=== PATIENT | female | born 1975 | race Caucasian/White ===

== ENCOUNTER → 2016-11-16 | Outpatient (CLI) | payer OTHER ==
[~2016-11-16] MED LIST: ALBUAER2 INH; AMPH20TA2 PO; CHOL1TAB4 PO; CYAN10005 PO; HYDR-4079 PO; KLN1X PO
[2016-11-16 14:38] LABS: THYROID STIMULATING HORMONE 0.016 uIu/ml (0.300-4.500)
== END | disposition home or self-care (01) ==
LOC: C.LABMFLN 09:28
PROVIDERS: ATTEND Internal Medicine Endocrinology, Diabetes & Metabolism
DX: E06.3 Autoimmune thyroiditis (principal)

== ENCOUNTER → 2016-12-04 | Outpatient (CLI) | payer OTHER ==
--- NOTE | 2016-12-04 13:30 | MAMMOGRAPHY REPORT ---
UNILATERAL LEFT DIGITAL DIAGNOSTIC MAMMOGRAM TOMOSYNTHESIS WITH CAD AND TARGETED LEFT ULTRASOUND: CLINICAL HISTORY: 41-year-old woman presents with focal pain and palpable mass in the upper outer qu adrant of the left breast. Patient has a history of cysts and prior cyst aspiration in the left jessenia ast. TECHNIQUE: Left breast tomosynthesis in addition to standard 2D mammography was performed. Current s nicole was also evaluated with a Computer Aided Detection (CAD) system. COMPARISON: Comparison is made to exams dated: 06/22/2016 mammogram, 12/30/2015 ultrasound, 12/30/2015 mammogram, 05/27/2015 mammogram, and 03/09/2014 mammogram - [facility]. BREAST COMPOSITION: There are scattered areas of fibroglandular density in the left breast. FINDINGS: A triangular skin palpable marker overlies the upper outer middle one third of the left br east, denoting the area of pain and lump pointed out by the patient. There are multiple round and o katherine circumscribed subcentimeter masses within the left breast, some of which have fluctuated in size compared to prior exams and others of which are stable. There are benign rim calcifications. No s uspicious spiculated or irregular mass, architectural distortion or cluster of suspicious microcalci fications. No new suspicious abnormality in the area of palpable concern as denoted by the skin pal pable marker. Real-time high-resolution ultrasound was performed in the area of concern pointed out by the patient (in the 1:00 and 2:00 left breast approximately 5-6 cm from the nipple. There is no evidence of a suspicious solid mass in this location or other suspicious abnormality. Incidental note is made of a small 3.2 x 1.6 x 2.7 mm cyst in the 1:00 left breast, 6 cm from the nipple. There is an oval par allel isoechoic solid-appearing mass in the 3:00 left breast, 5 cm from the nipple, measuring 4.5 x 3.1 x 6.4 mm. A cyst with internal nonvascular septations is seen in the 4:00 left breast, 1 cm fro m the nipple, measuring 3.7 x 4.5 x 6.1 mm. This was previously described in the 5:00 axis approxim ately 2 cm from the nipple and does not appear significantly changed. An adjacent nearly anechoic c yst is also identified measuring 5.8 x 2.7 x 4.8 mm and this is also unchanged. There is an anechoi c simple cyst in the 6:00 left breast, 1 cm from the nipple, measuring 3.9 x 2.5 x 3.4 mm. A probab le, located cyst in the 11:00 left breast, 2 cm from the nipple, measuring 7.5 x 3.0 x 7.9 mm, that is oval and parallel in configuration. It is slightly hypoechoic and has internal echogenicity. Although these findings most likely represent benign fibrocystic changes, particularly given prior b enign cyst aspirations in the left breast. There is an indeterminate solid mass in the 3:00 axis th at warrant definitive characterization with an ultrasound-guided core needle biopsy. Pending benign pathology results, could follow the probable complicated cyst in the 11:00 left breast in 6 months. IMPRESSION: ACR BI-RADS CATEGORY 4B: INTERMEDIATE SUSPICION FOR MALIGNANCY, TARGETED ULTRASOUND ACR BI-RADS CATEGORY 4B: INTERMEDIATE SUSPICION FOR MALIGNANCY 1. No new suspicious mammographic or sonographic abnormality is seen in the upper outer quadrant of the left breast to explain the patient's pain and palpable lump. Therefore, clinical follow-up is recommended, as biopsy of a clinically suspicious mass should not be precluded by negative imaging. 2. There are multiple benign-appearing subcentimeter masses throughout the left breast mammographic ally, that most likely represents benign fibrocystic changes. However, on ultrasound in the 3:00 le ft breast, 5 cm from the nipple, there is an indeterminate solid mass measuring 6.4 mm. Although th is could represent a benign fibroadenoma, definitive characterization with an ultrasound-guided core needle biopsy is recommended. 3. Pending benign pathology results would follow-up the probable complicated cyst in the 11:00 left breast in 6 months. These results and recommendations were discussed with the patient at the time of the exam. Approximately 10% of breast cancers are not detected with mammography. A negative mammographic repor t should not delay biopsy if a clinically suggestive mass is present. Nicole Bansal M.D. ay/:12/04/2016 12:10:12 Electronic Game Developer: Emili TEJADA(Morgan)(Michael), [facility] letter sent: Abnormal 4/5 BI-RADS Code: ACR BI-RADS Category 4B: Intermediate Suspicion For Malignancy Ultrasound BI-RADS: AC R BI-RADS Category 4B: Intermediate Suspicion For Malignancy
== END | disposition home or self-care (01) ==
LOC: C.MAMM 08:51
PROVIDERS: ATTEND Family Medicine
DX: N63 Unspecified lump in breast (principal)

== ENCOUNTER → 2016-12-10 | Outpatient (CLI) | payer OTHER ==
--- NOTE | 2016-12-10 11:49 | Discharge Instructions ---
Discharge Instructions Procedure Procedure Date: Dec 10, 2016. Reason for visit: Left Mass. Discharge Discharge Date: Dec 10, 2016. Discharge Diagnosis: post left breast 3:00 ultrasound guided core biopsy Instructions Activity Recommendations: Additional Limitations (see below) Return to School/Work: no limitations Recommended Home Diet: No Limitations Provider Instructions: ACTIVITY RECOMMENDATIONS: * No lifting, pushing, pulling or exercising the affected side for three days. RETURN TO SCHOOL/WORK: * You may return to work/school after the procedure, but do not perform any strenuous activities for 24 to 48 hours. MEDICATIONS: * Tylenol (two 325 mg) every four to six hours if needed for mild pain (if not allergic to Tylenol). DIET: * Resume previous diet. SPECIAL CARE INSTRUCTIONS: * Keep biopsy site dry for 24 hours. May shower after 24 hours, but do not soak (bathe) incision. * May remove Tegaderm (plastic patch) tomorrow AFTER showering. * Leave the steri-strips on for one week. Allow the steri-strips to fall off by themselves. If not off after one week, you may remove them. You may place a Bandaid crosswise over the strips, if desired. * Apply ice 10 minutes on and 10 minutes off as needed. * Wear a bra at bedtime to sleep more comfortably for 2-3 days. * Your referring physician should have the results after approximately 5 to 7 business days. * Call for unusual bleeding, fever, drainage, etc or if you have any questions call [phone] during normal business hours or after hours call Dr Bansal, . FOLLOW UP VISIT: Follow-up with Referring Physician as scheduled. Allergies Coded Allergies: Cephalexin (Unverified Allergy, Severe, HIVES, 05/11/14) Metronidazole (Unverified Allergy, Severe, HIVES, 05/11/14) Kellee Bowen Recommendations: Call your doctor if: * Temperature above 101 degrees * Pain not relieved by pain medicine ordered * There is increased drainage or redness from any incision * You have any unanswered questions or concerns. Your Doctors Instructions noted above were prepared by provider Nicole Bansal. Patient Signature Section: Patient Instructions Signature Page Nette Tubbs Patient (or Guardian) Signature/Date: I have read and understand the instructions given to me by my caregivers. Caregiver/RN/Doctor Signature/Date: The above-named patient and/or guardian has received patient instructions on this date. + Original Patient Signature Page (only) stays with chart. Please make copy for patient.
--- NOTE | 2016-12-10 13:31 | MAMMOGRAPHY REPORT ---
THIS REPORT HAS BEEN AMENDED. ULTRASOUND GUIDED BIOPSY LEFT BREAST: 12/10/2016 CLINICAL HISTORY: Indeterminate solid mass in the 3:00 left breast. Patient presents for ultrasound -guided core needle biopsy. COMPARISON: Comparison is made to exams dated: 12/04/2016 ultrasound, 12/04/2016 mammogram, 06/22/2016 mammogram, 12/30/2015 mammogram, 06/14/2015 ultrasound, and 05/27/2015 mammogram - [facility]. PATIENT CONSENT: The procedure, risks and benefits were discussed with the patient and informed writ ten consent was obtained. Specific risks to this procedure include: bleeding, puncture of adjacent s tructure, nontarget biopsy, sampling error, metal allergy and medication reaction. A time out was performed in the left breast was agreed as the site for ultrasound-guided biopsy. Th e skin was prepped and draped in the usual sterile fashion. The solid mass in the 3:00 left breast w as chosen as the target for biopsy. Subcutaneous and intraparenchymal 1% buffered lidocaine without epinephrine was administered as local anesthesia. A skin incision was made. Through the incision, 3 samples were taken with a 14 gauge Achieve biopsy device. A metallic marker was placed at the biops y site. Hemostasis was achieved after manual compression. The patient tolerated the procedure well a nd there was no immediate complication. The samples were sent to the pathology department in an lindsey ropriately labeled container. Postprocedure left CC and ML views were obtained. There is a new ribbon-shaped metallic biopsy jenniffer er and no significant hematoma in the 3:00 middle one third of the breast, at the site of the biopsi ed isoechoic solid mass seen on ultrasound. Biopsy marker clip correlates with a dominant oval demo graphic mass that has been present dating back to at least 03/09/2014. Pending benign pathology res ults, a short interval follow-up left exam including repeat targeted ultrasound in the 11:00 axis is recommended to ensure stability in 6 months. IMPRESSION: ULTRASOUND GUIDED BIOPSY Status post ultrasound-guided core biopsy of an indeterminate solid mass in the 3:00 left breast, wi th biopsy marker placed at the site. Pending benign pathology results, a short interval follow-up left diagnostic mammogram and repeat ta rgeted ultrasound in the 11:00 axis is recommended to ensure stability of another possible complicat ed cyst seen on prior diagnostic workup. The patient will receive notification of the biopsy results from her referring physician. Nicole Bansal M.D. ay/:12/10/2016 12:03:12 Beet Flumer: Wendy Delgado, [facility] AMENDMENT: 12/27/2016 Nicole Bansal M.D. Pathology results from the ultrasound-guided core biopsy of a solid mass in the 3:00 left breast yie lded a fibroadenoma. Negative for DCIS and invasive carcinoma. A short interval follow-up diagnost ic left mammogram and repeat ultrasound is still recommended for the probable common located cyst in the 11:00 left breast and for reassessment of the mammographic appearance of the left breast given multiple masses. letter sent: Follow Up Recommended 3
--- NOTE | 2016-12-10 13:33 | MAMMOGRAPHY REPORT ---
UNILATERAL LEFT DIGITAL DIAGNOSTIC MAMMOGRAM: 12/10/2016 CLINICAL HISTORY: Status post ultrasound guided core biopsy in the 3:00 left breast. Please refer to the report from left breast ultrasound guided core biopsy performed at the same time for full detail. IMPRESSION: POST PROCEDURE IMAGING FOR MARKER PLACEMENT Please refer to the report from left breast ultrasound guided core biopsy performed at the same time for full detail. A follow-up left diagnostic mammogram and an ultrasound in 6 months is recommended to demonstrate st ability. Approximately 10% of breast cancers are not detected with mammography. A negative mammographic repor t should not delay biopsy if a clinically suggestive mass is present. Nicole Bansal M.D. ay/:12/10/2016 11:50:58 Truck Caterer: Wendy Delgado, [facility] BI-RADS Code: Post Procedure Imaging For Marker Placement
== END | disposition home or self-care (01) ==
LOC: C.MAMM 10:38
PROVIDERS: ATTEND Family Medicine
DX: D24.2 Benign neoplasm of left breast (principal)

== ENCOUNTER → 2017-02-19 | Outpatient (CLI) | payer OTHER ==
[2017-02-19 18:21] LABS: THYROID STIMULATING HORMONE 0.16 uIu/ml (0.300-4.500)
== END | disposition home or self-care (01) ==
LOC: C.LABMFLN 13:33
PROVIDERS: ATTEND Internal Medicine Endocrinology, Diabetes & Metabolism
DX: E06.3 Autoimmune thyroiditis (principal)

== ENCOUNTER → 2017-04-22 | Outpatient (CLI) | payer OTHER | END | disposition home or self-care (01) | LOC: C.LABMFLN 08:31 | PROVIDERS: ATTEND Internal Medicine Endocrinology, Diabetes & Metabolism | DX: E06.3 Autoimmune thyroiditis (principal); E03.8 Other specified hypothyroidism ==

== ENCOUNTER → 2017-06-05 | Outpatient (CLI) | payer OTHER ==
[2017-06-08 12:37] LABS: BORDETELLA PERTUSSIS SOURCE Nasal Swab
== END | disposition home or self-care (01) ==
LOC: C.LABMFLN 12:51
PROVIDERS: ATTEND Family Medicine
DX: R05 Cough (principal)

== ENCOUNTER → 2017-06-10 | Outpatient (CLI) | payer OTHER ==
--- NOTE | 2017-06-12 08:51 | MAMMOGRAPHY REPORT ---
BILATERAL DIGITAL DIAGNOSTIC MAMMOGRAM TOMOSYNTHESIS WITH CAD AND TARGETED BILATERAL ULTRASOUND: 2016 CLINICAL HISTORY: 42-year-old woman with a palpable, painful lump in the upper outer approximate 1:00 axis of the left breast, still present from November 2016. She has a history of biopsy-proven fibroa denoma in the 3:00 left breast, presents for a short follow-up of a benign-appearing mass in the 11:0 0 left breast seen on prior ultrasound, and also time of annual bilateral screening exam. TECHNIQUE: Bilateral breast tomosynthesis in addition to standard 2D mammography was performed. Curre nt study was also evaluated with a Computer Aided Detection (CAD) system. COMPARISON: Comparison is made to exams dated: 12/10/2016 mammogram, 12/10/2016 ultrasound biopsy, 2016 ultrasound, 12/04/2016 mammogram, 06/22/2016 mammogram, and 05/27/2015 mammogram - [facility]. BREAST COMPOSITION: There are scattered areas of fibroglandular density in both breasts. FINDINGS: A triangle shaped skin marker overlies the upper outer middle one third of the left breast, denoting the painful lump pointed out by the patient. There is no evidence of a new suspicious mass , developing asymmetry, microcalcification or architectural distortion in the area of palpable concer n. There is a stable ribbon shaped metallic biopsy marker in the 3:00 left breast. Stable nodularit y in the retroareolar and inferior left breast. Further evaluation with ultrasound was performed in the inferior and 11:00 axes of the left breast. The parenchymal pattern of the right breast is similar to prior mammograms. On the tomosynthesis yonny ges, there is nodularity of the breast tissue, with a possible partially circumscribed and lobulated 6 mm mass slightly lateral to the posterior nipple line on the CC view, for which further evaluation with ultrasound was performed. No focal area of architectural distortion, developing asymmetry or de leon spicious microcalcification. Targeted ultrasound was performed in both breasts. Particular attention was paid to the area of lump pointed out by the patient, in the 1:00 left breast, 9 cm from the nipple. On palpation, there is a nodular 1 cm mobile mass. On ultrasound in the area of concern, sonographically normal tissue is se en without a discrete solid or cystic mass. Additional ultrasound performed in the 11:00 left breast , 2 cm from the nipple, redemonstrates a parallel hypoechoic benign-appearing solid versus cystic mas s that measures 6.9 x 2.6 x 8.7 mm. This has not significantly changed comparing to the 12/04/2016 e xam at which time it measured 7.5 x 3.0 x 7.9 mm. 2 mildly complicated cyst with internal nonvascula r septations are again seen in the 4:00 to 5:00 periareolar left breast measuring 6 mm. In the right breast, a few scattered anechoic and mildly complicated cysts are seen particularly in t he 6:00 axis, 1 cm from the nipple, measuring 3.5 mm, in the 7:00 axis, 1 cm from the nipple measurin g 2.9 mm and in the 11:00 periareolar breast measuring 4.3 and 3.6 mm. There is no evidence of a blue picious solid mass in the visualized right breast. The largest round cyst in the 11:00 periareolar r ight breast is thought to correlate with the possible mammographic mass. IMPRESSION: ACR-BI-RADS CATEGORY 3: PROBABLY BENIGN, TARGETED ULTRASOUND ACR-BI-RADS CATEGORY 3: PRO BABLY BENIGN 1. There is a persistent painful lump in the 1:00 left breast, without suspicious mammographic or so nographic finding. Clinical follow-up is recommended particularly given the persistent nature of thi s palpable concern, with possible follow-up options of surgical consultation or fine-needle aspiratio n based on palpation in the pathology department. 2. Stable sonographic appearance of an 8 mm parallel hypoechoic lesion in the 11:00 left breast on u ltrasound. Another 12 month follow-up targeted ultrasound is recommended to ensure longer stability. 3. Scattered cysts in both breasts, compatible with fibrocystic changes. This accounts for most of the mammographic masses and nodularity. Overall, bilateral diagnostic mammograms including tomosynth esis images are recommended at the time of left breast ultrasound follow-up in 12 months. These results and recommendations were discussed with the patient at the time of the exam. Approximately 10% of breast cancers are not detected with mammography. A negative mammographic report should not delay biopsy if a clinically suggestive mass is present. Nicole Bansal M.D. ay/:06/10/2017 12:18:01 Water Tanker Driver: Olivia Gerardo RT(R)(M), [facility] letter sent: Follow Up Recommended 3 BI-RADS Code: ACR-BI-RADS Category 3: Probably Benign Ultrasound BI-RADS: ACR-BI-RADS Category 3: Pr obably Benign
== END | disposition home or self-care (01) ==
LOC: C.MAMM 10:36
PROVIDERS: ATTEND Family Medicine
DX: N64.4 Mastodynia (principal); N63 Unspecified lump in breast

== ENCOUNTER → 2017-07-25 | Outpatient (CLI) | payer OTHER ==
[2017-07-25 18:21] LABS: ALKALINE PHOSPHATASE 74 U/L (45-117); ALT/SGPT 18 U/L (12-78); AST/SGOT 7 U/L (15-37)
== END | disposition home or self-care (01) ==
LOC: C.LABMFLN 16:46
PROVIDERS: ATTEND Family Medicine
DX: E80.6 Other disorders of bilirubin metabolism (principal)

== ENCOUNTER → 2017-10-01 | Outpatient (CLI) | payer OTHER | END | disposition home or self-care (01) | LOC: C.LABMFLN 12:56 | PROVIDERS: ATTEND Family Medicine | DX: R82.90 Unspecified abnormal findings in urine (principal); R30.0 Dysuria ==

== ENCOUNTER → 2017-11-27 | Outpatient (CLI) | payer OTHER | END | disposition home or self-care (01) | LOC: C.LABMFLN 12:01 | PROVIDERS: ATTEND Urology | DX: R82.90 Unspecified abnormal findings in urine (principal) ==

== ENCOUNTER → 2018-02-12 | Outpatient (CLI) | payer OTHER | END | disposition home or self-care (01) | LOC: C.LABMFLN 17:46 | PROVIDERS: ATTEND Internal Medicine Endocrinology, Diabetes & Metabolism | DX: E06.3 Autoimmune thyroiditis (principal) ==

== ENCOUNTER → 2018-03-20 | Outpatient (CLI) | payer OTHER ==
--- NOTE | 2018-03-20 07:44 | DIAGNOSTIC IMAGING REPORT ---
(CHEST) THORAX WITHOUT CLINICAL HISTORY: Multiple pulmonary nodules COMPARISON STUDY: None CT DOSE: 282.33 mGy.cm TECHNIQUE: CT of the thorax was performed from the thoracic inlet to the lung bases. Images are reviewed in the axial, sagittal, and coronal planes. IV contrast was not administered for this examination. A dose lowering technique was utilized adhering to the principles of ALARA. FINDINGS: Thyroid: Imaged portions of the thyroid gland are normal in appearance. Thoracic aorta: The thoracic aorta is normal in course and caliber, noting standard 3 vessel arch anatomy. Heart: The heart is normal in size and configuration, without pericardial effusion. Lungs and pleural spaces: No pleural effusions are visualized. There is no focal pulmonary consolidation. There are in excess of 50 bilateral pulmonary nodules. The nodules appear groundglass, mixed, and solid. The largest is an 8.5 mm groundglass nodule within the left lung apex. There is no focal pulmonary consolidation to indicate a pneumonia. Follow-up per Fleischner criteria is recommended. Mediastinum: There is no mediastinal lymphadenopathy. Janett: There is no evidence of pathologic hilar adenopathy given the limitations of a noncontrast study Axilla: There is no evidence of pathologic axillary lymphadenopathy Upper abdomen: The gallbladder surgically absent Skeletal structures: There are no lytic or blastic osseous lesions. IMPRESSION: 1. There are in excess of 50 bilateral pulmonary nodules. These appear groundglass mixed and solid. The largest is an 8.5 mm groundglass nodule within the left lung apex. 3-6 month follow-up is recommended. Please refer to below summary of Fleischner criteria recommendations for follow-up of incidental CT nodules (Galen Canales, Guidelines for management of small pulmonary nodules detected on CT scans: A statement from the Fleischner Society, Radiology 237: [phone].) SOLID NODULES Solitary nodule size: <6 mm * low risk patients: no follow-up needed * high risk patients: optional CT at 12 months Solitary nodule size: 6-8 mm * low risk patients: follow-up at 6-12 months, then consider further follow-up at 18-24 months * high risk patients: initial follow-up CT at 6-12 months and then at 18-24 months if no change Solitary nodule size: >8 mm * either low or high risk patients - consider follow-up CT at 3 months, and/or CT-PET, and/or biopsy Multiple nodules size: <6 mm * low risk patients: no routine follow-up * high risk patients: optional CT at 12 months Multiple nodules size: 6-8 mm * low risk patients: follow-up at 3-6 months, then consider further follow-up at 18-24 months * high risk patients: follow-up at 3-6 months, then at 18-24 months if no change Multiple nodules size: >8 mm * low risk patients: follow-up at 3-6 months, then consider further follow-up at 18-24 months * high risk patients: follow-up at 3-6 months, then at 18-24 months if no change Note: newly detected indeterminate nodule in persons 35 years of age or older. * low risk patients: minimal or absent history of smoking and/or other known risk factors * high risk patients: history of smoking or of other known risk factors (e.g. first degree relative with lung cancer, or exposure to asbestos, radon, uranium) * if a nodule up to 8 mm is partly solid or is ground glass further follow-up is required after 24 months to exclude possible slow growing adenocarcinoma (MECHE) SUBSOLID NODULES Solitary pure ground-glass nodule * nodule size <6 mm - no CT follow-up required * nodule size >=6 mm - follow-up CT at 6-12 months, then every 2 years until 5 years Solitary part-solid nodule * nodule size <6 mm - no CT follow-up required * nodule size >=6 mm - follow-up CT at 3-6 months. If unchanged, and solid component remains <6 mm, then annual follow-up for 5 years Multiple subsolid nodules * nodule size <6 mm - follow-up CT at 3-6 months, consider further follow-up at 2 and 4 years if stable * nodule size >=6 mm - follow-up CT at 3-6 months, subsequent management based on the most suspicious nodule(s) Electronically signed by: Chang Tamez M.D. 03/20/2018 7:42 AM Dictated Date/Time: 03/20/2018 7:29 AM
== END | disposition home or self-care (01) ==
LOC: C.CTS 07:13
PROVIDERS: ATTEND Family Medicine
DX: R91.8 Other nonspecific abnormal finding of lung field (principal)

== ENCOUNTER → 2018-06-09 | Outpatient (CLI) | payer OTHER ==
--- NOTE | 2018-06-09 16:52 | DIAGNOSTIC IMAGING REPORT ---
(CHEST) THORAX WITHOUT CT DOSE: 426.62 mGycm HISTORY: Pulmonary nodules R91.8 Multiple pulmonary nodules TECHNIQUE: Multiaxial CT images of the chest were performed without contrast. A dose lowering technique was utilized adhering to the principles of ALARA. COMPARISON: 03/20/2018 FINDINGS: A considerable number of parenchymal nodules are again noted. These appear to be in general slightly increased in prominence. Several smaller nodules have diminished in prominence but the overall trend is one of a slight progression. There lungs otherwise appear clear. No significant mediastinal or hilar adenopathy. IMPRESSION: 1. Slight increase in prominence/number of the diffuse parenchymal nodularity throughout both hemithoraces. 2. Close CT follow-up at a 3-4 month time frame is suggested. Please refer to below summary of Fleischner criteria recommendations for follow-up of incidental CT nodules (Galen Canales, Guidelines for management of small pulmonary nodules detected on CT scans: A statement from the Fleischner Society, Radiology 237: [phone].) SOLID NODULES Solitary nodule size: <6 mm * low risk patients: no follow-up needed * high risk patients: optional CT at 12 months Solitary nodule size: 6-8 mm * low risk patients: follow-up at 6-12 months, then consider further follow-up at 18-24 months * high risk patients: initial follow-up CT at 6-12 months and then at 18-24 months if no change Solitary nodule size: >8 mm * either low or high risk patients - consider follow-up CT at 3 months, and/or CT-PET, and/or biopsy Multiple nodules size: <6 mm * low risk patients: no routine follow-up * high risk patients: optional CT at 12 months Multiple nodules size: 6-8 mm * low risk patients: follow-up at 3-6 months, then consider further follow-up at 18-24 months * high risk patients: follow-up at 3-6 months, then at 18-24 months if no change Multiple nodules size: >8 mm * low risk patients: follow-up at 3-6 months, then consider further follow-up at 18-24 months * high risk patients: follow-up at 3-6 months, then at 18-24 months if no change Note: newly detected indeterminate nodule in persons 35 years of age or older. * low risk patients: minimal or absent history of smoking and/or other known risk factors * high risk patients: history of smoking or of other known risk factors (e.g. first degree relative with lung cancer, or exposure to asbestos, radon, uranium) * if a nodule up to 8 mm is partly solid or is ground glass further follow-up is required after 24 months to exclude possible slow growing adenocarcinoma (MECHE) SUBSOLID NODULES Solitary pure ground-glass nodule * nodule size <6 mm - no CT follow-up required * nodule size >=6 mm - follow-up CT at 6-12 months, then every 2 years until 5 years Solitary part-solid nodule * nodule size <6 mm - no CT follow-up required * nodule size >=6 mm - follow-up CT at 3-6 months. If unchanged, and solid component remains <6 mm, then annual follow-up for 5 years Multiple subsolid nodules * nodule size <6 mm - follow-up CT at 3-6 months, consider further follow-up at 2 and 4 years if stable * nodule size >=6 mm - follow-up CT at 3-6 months, subsequent management based on the most suspicious nodule(s) The above report was generated using voice recognition software. It may contain grammatical, syntax or spelling errors. Electronically signed by: Osmar Holly M.D. 06/09/2018 4:51 PM Dictated Date/Time: 06/09/2018 4:44 PM
== END | disposition home or self-care (01) ==
LOC: C.CTS 16:23
PROVIDERS: ATTEND Internal Medicine Critical Care Medicine
DX: R91.8 Other nonspecific abnormal finding of lung field (principal)

== ENCOUNTER → 2018-06-27 | Outpatient (CLI) | payer OTHER ==
--- NOTE | 2018-06-27 14:30 | MAMMOGRAPHY REPORT ---
BILATERAL DIGITAL DIAGNOSTIC MAMMOGRAM TOMOSYNTHESIS WITH CAD AND TARGETED LEFT ULTRASOUND: 06/27/2018 CLINICAL HISTORY: 12 month follow-up of left 11:00 breast mass. Due for routine annual mammography. T he patient reports she still feels the palpable lump in the left upper outer quadrant, which has not noticeably changed since she was seen here last year. She denies any new lumps. TECHNIQUE: Breast tomosynthesis in addition to standard 2D mammography was performed. Current study w as also evaluated with a Computer Aided Detection (CAD) system. Bilateral CC and MLO 2D and tomosynt hesis images were obtained. COMPARISON: Comparison is made to exams dated: 06/10/2017 mammogram, 12/10/2016 mammogram, 12/04/2016 [facility] mogram, 06/22/2016 mammogram, 12/30/2015 mammogram, and 06/14/2015 mammogram - [facility]. BREAST COMPOSITION: There are scattered areas of fibroglandular density in both breasts. FINDINGS: A triangle marker was placed at the site of the palpable lump pointed out by the patient in the left upper outer quadrant. No suspicious masses or other suspicious mammographic abnormalities are seen i n this region. The remainder of both breasts are stable compared to prior exams, without suspicious masses, calcifications, or areas of architectural distortion noted. A biopsy clip is again noted wit hin the left upper outer quadrant. Bilateral nodularity is not significantly changed. Scattered skyler ign-appearing left breast calcifications are also stable. Targeted ultrasound was performed of the area of the previously seen left 11:00 breast mass for which follow-up was recommended. In the left 11:00 breast, 2 cm from the nipple, again noted is an oval c ircumscribed hypoechoic benign-appearing mass, which measures 6 x 2 x 5 mm. The mass is decreased in size compared to the June 2017 exam, previously measuring 9 x 7 x 3 mm. Given the interval decrea se in size, the mass is benign and likely represents a decreasing cyst. Ultrasound was again perform ed of the area of the palpable lump pointed out by the patient, in the left breast at 1:00 approximat samantha 9 cm from the nipple. Sonographically normal tissue is seen in this region, without evidence of a mass or other suspicious sonographic abnormality. IMPRESSION: ACR BI-RADS CATEGORY 2: BENIGN, ULTRASOUND ACR BI-RADS CATEGORY 2: BENIGN No suspicious mammographic or sonographic abnormality at the site of the palpable left 1:00 breast nicole mp pointed out by the patient. The circumscribed benign-appearing 6 mm mass in the left 11:00 breast on ultrasound is decreased in size compared to prior exam and is therefore benign. There is no mamm ographic or sonographic evidence of malignancy. Recommend continued clinical follow-up of the palpab le left breast lump, and recommend routine bilateral screening mammograms in one year. The patient has been verbally notified of the results. Some breast cancers are not detected with mammography. A negative mammographic report should not lance y biopsy if a clinically suggestive mass is present. Lily Peck M.D. ah/:06/27/2018 11:54:37 Bill Of Materials Clerk: RT Carol(R)(M), [facility]; Lily Peck MD, [facility] letter sent: Normal 1/2 OVERALL STUDY BIRADS: 2 Benign
== END | disposition home or self-care (01) ==
LOC: C.MAMM 09:32
PROVIDERS: ATTEND Family Medicine
DX: N63.22 Unspecified lump in the left breast, upper inner quadrant (principal)